=== PATIENT | female | born 1955 | race Caucasian/White ===

== ENCOUNTER 2018-01-31 14:43 | Emergency (ER) | payer OTHER ==
[2018-01-31 16:52] LABS: URINE BLOOD (Dip) POC Trace-intact (NEGATIVE); URINE GLUCOSE (Dip) POC Negative (NEGATIVE); URINE KETONES (Dip) POC Negative (NEGATIVE); URINE LEUKOCYTE EST (Dip) POC Negative (NEGATIVE); URINE NITRITE (Dip) POC Negative (NEGATIVE); URINE TOTAL PROTEIN POC Negative (NEGATIVE)
[2018-01-31] MEDS: MECLIZINE 12.5 MG TAB PO (16:53)
[2018-01-31] MEDS: ONDANSETRON (ODT) 4 MG TAB ODT (16:53)
== END 2018-01-31 20:15 | disposition home or self-care (01) ==
LOC: FTE 14:43
DX: R42 Dizziness and giddiness (principal); H91.92 Unspecified hearing loss, left ear; E11.9 Type 2 diabetes mellitus without complications; R11.12 Projectile vomiting
CPT/HCPCS: 70450; 81003; 99284-25